=== PATIENT | male | born 2000 | race Hispanic/Latino ===

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

== ENCOUNTER 2021-03-29 06:47 | Emergency (ER) | payer BC, SELFPAY ==
[2021-03-29] MEDS ORDERED: Ondansetron PF 4 MG/2 ML Vial ONE (07:04)
[2021-03-29 07:29] LABS: #Monocytes 0.7 thou/uL (0.11-0.59); #Neutrophils 13.7 thou/uL (1.40-6.50); %Basophils 0.3 % (0.0-1.0); %Eosinophils 0.2 % (0.0-10.0); %Lymphocytes 6.3 % (28.0-48.0); %Monocytes 4.3 % (0.0-4.0); Hemoglobin 16.2 g/dL (14.0-18.0); Mean Corpuscular HGB CONC 34.9 g/dL (32.0-36.0); Mean Corpuscular Volume 91.8 fL (78.0-98.0); Mean Platelet Volume 7.9 fL (7.4-10.4); Platelet Count 280 thou/uL (130-400); RBC Distribution Width 11.9 % (11.5-14.5); Red Blood Cell (RBC) Count 5.06 mill/uL (4.00-5.20); White Blood Cell (WBC) Count 15.4 thou/uL (4.8-10.8)
[2021-03-29] MEDS ORDERED: diphenhydrAMINE 50 MG/ML VIAL ONE (07:37)
[2021-03-29] MEDS ORDERED: Famotidine/PF 20 mg/2ml Vial ONE (07:37)
[2021-03-29] MEDS ORDERED: Metoclopramide HCl 10 MG/2 ML VIAL ONE (07:37)
[2021-03-29 07:47] LABS: ALT (SGPT) 23 U/L (8-55); AST (SGOT) 27 U/L (5-34); Albumin 5.3 g/dL (3.5-5.0); Alkaline Phosphatase 51 U/L (50-130); Anion Gap 21 mmol/L (10-20); BUN (Urea Nitrogen) 11 mg/dL (8.9-20.6); Bilirubin, Total 0.8 mg/dL (0.2-1.2); Calc. Creatinine Clearance 0 mL/min (70-130); Calcium 10.4 mg/dL (7.8-10.44); Carbon Dioxide 20 mmol/L (22-29); Chloride 106 mmol/L (98-107); Globulin 3.6 g/dL (2.4-3.5); Glucose 139 mg/dL (70-105); Lipase 16 U/L (8-78); Potassium 4.2 mmol/L (3.5-5.1); Protein, Total 8.9 g/dL (6.0-8.3); Sodium 143 mmol/L (136-145)
[2021-03-29] MEDS ORDERED: Ondansetron ODT 4 MG TAB ONE (10:47)
== END 2021-03-29 10:51 | disposition home or self-care (01) ==
LOC: ERS 06:47
DX: K29.20 Alcoholic gastritis without bleeding (principal); R03.0 Elevated blood-pressure reading, without diagnosis of hypertension
CPT/HCPCS: 80053; 83690; 85025; 96365; 96375; J1200; J2405; J2765; Q0162; S0028